=== PATIENT | female | born 1975 | race American Indian/Alaskan Native ===

== ENCOUNTER 2022-03-11 08:06 | Emergency (ER) | payer BC ==
[2022-03-11] MEDS ORDERED: ASPIRIN 325 MG TAB PO ONE (08:19)
--- NOTE | 2022-03-11 08:46 | XRay Report ---
CHEST 2 VIEWS INDICATION / CLINICAL INFORMATION: chest pain. COMPARISON: 04/29/2021 FINDINGS: SUPPORT DEVICES: None. HEART / MEDIASTINUM: No significant abnormality. LUNGS / PLEURA: No significant pulmonary or pleural abnormality. No pneumothorax. ADDITIONAL FINDINGS: No significant additional findings. IMPRESSION: 1. No acute findings. Signer Name: Kunal Harris Jr, MD Signed: 03/11/2022 8:42 AM Workstation Name: [id number]
[2022-03-11 09:12] LABS: Basophils # (Auto) 0.1 K/mm3 (0.0-0.1); Basophils % (Auto) 0.5 % (0.0-1.8); Eosinophils # (Auto) 0.1 K/mm3 (0.0-0.4); Eosinophils % (Auto) 1.1 % (0.0-4.3); Hematocrit 42.4 % (30.3-42.9); Lymphocytes # (Auto) 1.3 K/mm3 (1.2-5.4); Lymphocytes % (Auto) 11.9 % (13.4-35.0); Mean Corpuscular HGB Conc 35 % (30-34); Mean Corpuscular Volume 90 fl (79-97); Monocytes # (Auto) 0.9 K/mm3 (0.0-0.8); Monocytes % (Auto) 8.1 % (0.0-7.3); Platelet Count 208 K/mm3 (140-440); Red Blood Count 4.73 M/mm3 (3.65-5.03); Red Cell Distribution Width 13.5 % (13.2-15.2)
--- NOTE | 2022-03-11 09:22 | Electrocardiograph Report ---
[facility] Test Date: 2022-03-11 Test Time: 08:23:48 Pat Name: MUKESH VÁSQUEZ Department: Room: Gender: F Counseling Services Manager: OSBALDO : 1975 Requested By: NICKY BRENNER Order Number: [id number] Reading MD: Nomi Hammonds Measurements Intervals [place] Rate: 92 P: 67 PA: 155 QRS: -3 QRSD: 84 T: 35 QT: 381 QTc: 470 Interpretive Statements Sinus rhythm Probable left atrial enlargement nonspecific st-t No previous ECG available for comparison Electronically Signed On 03-11-2022 9:21:40 EDT by Nomi Hammonds
[2022-03-11 09:24] LABS: Alanine Aminotransferase 80 units/L (7-56); Albumin 4.7 g/dL (3.9-5); Blood Urea Nitrogen 11 mg/dL (7-17); Calcium 9.1 mg/dL (8.4-10.2); Hemolysis Index 22
[2022-03-11 09:37] LABS: BUN/Creatinine Ratio 16
[2022-03-11] MEDS ORDERED: ONDANSETRON 4 MG/2 ML INJ IV ONE (11:49)
[2022-03-11] MEDS ORDERED: MORPHINE 4 MG/1 ML INJ IV ONE (11:49)
--- NOTE | 2022-03-11 14:44 | Emergency Department Report ---
ED General Adult HPI - General Chief complaint: Weakness Stated complaint: CHEST PAIN/VOMITING Time Seen by Provider: 03/11/22 08:31 Source: patient Mode of arrival: Ambulatory Limitations: No Limitations - History of Present Illness Initial comments: Patient is a 46-year-old female presenting to ED with complaint of generalized weakness, sharp chest pain and nausea and vomiting beginning 2 days ago. She denies any history of CAD. Denies fever or chills. Severity scale (0 -10): 3 Quality: aching, sharp Improves with: none Worsens with: none Treatments Prior to Arrival: none - Related Data Allergies Allergy/AdvReac Type Severity Reaction Status Date / Time aspirin Allergy Unknown Verified 03/11/22 08:08 ED Review of Systems ROS: Stated complaint: CHEST PAIN/VOMITING Other details as noted in HPI Constitutional: denies: chills, fever Respiratory: denies: cough, shortness of breath, wheezing Cardiovascular: chest pain Endocrine: no symptoms reported Gastrointestinal: nausea, vomiting Genitourinary: denies: urgency, dysuria, discharge Musculoskeletal: denies: back pain, joint swelling, arthralgia Skin: denies: rash, lesions Neurological: denies: headache, weakness, paresthesias Psychiatric: denies: anxiety, depression ED Past Medical Hx - Past Medical History Previous Medical History?: Yes Hx Hypertension: Yes - Social History Smoking Status: Unknown if ever smoked ED Physical Exam - General Limitations: No Limitations General appearance: alert, in no apparent distress - Head Head exam: Present: atraumatic, normocephalic - Respiratory Respiratory exam: Present: normal lung sounds bilaterally. Absent: respiratory distress - Cardiovascular Cardiovascular Exam: Present: regular rate, normal rhythm, normal heart sounds - GI/Abdominal GI/Abdominal exam: Present: soft. Absent: distended, tenderness - Rectal Rectal exam: Present: deferred - Neurological Exam Neurological exam: Present: alert, oriented X3 - Psychiatric Psychiatric exam: Present: normal affect, normal mood - Skin Skin exam: Present: warm, dry, intact, normal color ED Course Vital Signs 03/11/22 03/11/22 03/11/22 08:15 08:50 09:46 Temperature 97.7 F Pulse Rate 94 H 86 Respiratory 20 20 16 Rate Blood Pressure 166/99 Blood Pressure 156/101 [Left] O2 Sat by Pulse 100 98 99 Oximetry 03/11/22 03/11/22 03/11/22 10:00 10:16 10:30 Temperature Pulse Rate 91 H 89 93 H Respiratory 21 21 11 L Rate Blood Pressure 166/99 157/104 157/104 Blood Pressure [Left] O2 Sat by Pulse 100 100 Oximetry 03/11/22 03/11/22 03/11/22 10:46 11:00 11:16 Temperature Pulse Rate 89 88 89 Respiratory 19 16 9 L Rate Blood Pressure 163/105 163/105 148/96 Blood Pressure [Left] O2 Sat by Pulse 100 100 98 Oximetry 03/11/22 03/11/22 03/11/22 11:30 11:54 12:00 Temperature Pulse Rate 93 H 94 H Respiratory 16 18 Rate Blood Pressure 148/96 148/96 159/105 Blood Pressure [Left] O2 Sat by Pulse 79 L 99 100 Oximetry 03/11/22 03/11/22 03/11/22 12:16 12:30 12:46 Temperature Pulse Rate 86 87 86 Respiratory 18 14 12 Rate Blood Pressure 155/89 148/96 162/96 Blood Pressure [Left] O2 Sat by Pulse 98 98 96 Oximetry 03/11/22 03/11/22 03/11/22 13:00 13:16 13:30 Temperature Pulse Rate 88 85 81 Respiratory 13 21 16 Rate Blood Pressure 162/96 146/96 162/96 Blood Pressure [Left] O2 Sat by Pulse 98 100 97 Oximetry 03/11/22 03/11/22 03/11/22 13:46 14:00 14:16 Temperature Pulse Rate 84 83 82 Respiratory 13 19 16 Rate Blood Pressure 149/97 149/97 146/96 Blood Pressure [Left] O2 Sat by Pulse 99 98 98 Oximetry ED Medical Decision Making - Lab Data Result diagrams: 03/11/22 08:53 03/11/22 08:53 - EKG Data -: EKG Interpreted by Md EKG shows normal: sinus rhythm, axis, intervals Rate: normal - Medical Decision Making Chest x-ray unremarkable. EKG sinus rhythm with ventricular rate of 92 bpm. No acute ischemic findings. CBC grossly unremarkable. CMP, troponin and D-dimer are unremarkable. Patient was given 1 L normal saline bolus along with morphine and Zofran. On reassessment patient appears to be comfortable resting in bed. She is stable for discharge home with PCP follow-up within 1 week. Critical care attestation.: If time is entered above; I have spent that time in minutes in the direct care of this critically ill patient, excluding procedure time. ED Disposition Clinical Impression: Nausea and vomiting, Nonspecific chest pain, Generalized weakness Disposition: 01 HOME / SELF CARE / HOMELESS Is pt being admited?: No Condition: Stable Instructions: Nonspecific Chest Pain, Adult, Nausea and Vomiting, Adult, [id number] Additional Instructions: Please follow-up with your regular doctor within 1 week. You may return if your symptoms worsen. Time of Disposition: 14:47
[2022-03-11 15:38] VITALS: BP 145/94
== END 2022-03-11 15:39 | disposition home or self-care (01) ==
LOC: ED 08:06
DX: R11.2 Nausea with vomiting, unspecified (principal); R07.9 Chest pain, unspecified; R53.1 Weakness
CPT/HCPCS: 36415; 71046; 80053; 84484; 85025; 85379; 93005; 96374; 96375; 99284; J2270; J2405